=== PATIENT | female | born 1955 | race Caucasian/White ===

== ENCOUNTER 2016-09-24 03:50 | Emergency (ER) | payer OTHER ==
[~2016-09-24 03:50] MED LIST: ASPIR 8181 MG PO; BENADRYL 25MG C25 MG PO; GLUCOPHAGE1000 MG PO; IMDUR ER TAB 3030 MG PO; K-DUR TAB 10 M10 MEQ PO; LIPITOR TAB 2020 MG PO; LOPRESSOR 25 MG25 MG PO; PLAVIX 75 MG TA75 MG PO; PROTONIX40 MG PO; SYNTHROID88 MCG PO; VALIUM 5 MG TAB5 MG PO
== END 2016-09-24 05:50 | disposition home or self-care (01) ==
LOC: ER1 03:50
DX: Z53.21 Procedure and treatment not carried out due to patient leaving prior to being seen by health care provider (principal)

== ENCOUNTER 2020-09-01 15:24 | Emergency (ER) | payer OTHER ==
[~2020-09-01 15:24] MED LIST changes: +ARNUITY ELLIPT50 MCG INH; +BENADRYL 50MG C50 MG PO; +CERTAVITE SR-A1 EACH PO; +FLAGYL500 MG PO; +IMODIUM CAP 2 MG2 MG PO; +JANUMET 50-1,01 EACH PO; +JARDIANCE10 MG PO; +K-DUR TAB 20 M20 MEQ PO; +LASIX20 MG PO; +MACROBID 100 M100 MG PO; +MELOXICAM15 MG PO; +NAPROXEN500 MG PO; +NORFLEX 100 MG100 MG PO; +OMNICEF 300 MG300 MG PO; +PEPCID20 MG PO; +REQUIP0.25 MG PO; +SYNTHROID100 MCG PO; -SYNTHROID88 MCG PO; +TESSALON PERLE100 MG PO; +VALIUM5 MG PO; +VOLTAREN EC 7575 MG PO; +Voltaren Gel 1 % TOP; +ZITHROMAX250 MG PO; +ZOFRAN 4 MG TAB4 MG PO; +ZOFRAN ODT 4 MG4 MG PO; +ZOFRAN4 MG PO; +ZOFRAN8 MG PO
[2020-09-01 19:08] LABS: HEMOGLOBIN 14.3 gm/dl (12.3-15.3); RED BLOOD COUNT 4.91 M/UL (4.00-5.10); WHITE BLOOD COUNT 17.9 K/UL (4.5-11.0)
[2020-09-01 19:27] LABS: BUN/CREATININE RATIO 14 (0-10)
[2020-09-01] MEDS ORDERED: OMNICEF 300 MG300 MG PO (20:35)
[2020-09-01] MEDS ORDERED: HYDROCODON-ACE1 EAC4 PO (20:35)
== END 2020-09-01 21:07 | disposition home or self-care (01) ==
LOC: ER1 15:24
PROVIDERS: Emergency Medicine
DX: N12 Tubulo-interstitial nephritis, not specified as acute or chronic (principal); N20.0 Calculus of kidney; J44.9 Chronic obstructive pulmonary disease, unspecified; E11.40 Type 2 diabetes mellitus with diabetic neuropathy, unspecified; I11.9 Hypertensive heart disease without heart failure; Z90.49 Acquired absence of other specified parts of digestive tract
CPT/HCPCS: 80053; 81001; 82550; 82553; 83874; 84484; 85025; 96365; 96375; 99284; J0696; J2270; J2405

== ENCOUNTER 2020-12-18 08:21 | Emergency (ER) | payer OTHER ==
[~2020-12-18 08:21] MED LIST changes: +HYDROCODON-ACE1 EAC4 PO
[2020-12-18] MEDS ORDERED: MOBIC15 MG PO (12:04)
== END 2020-12-18 12:36 | disposition home or self-care (01) ==
LOC: ER1 08:21
DX: S93.401A Sprain of unspecified ligament of right ankle, initial encounter (principal); S80.01XA Contusion of right knee, initial encounter; J44.9 Chronic obstructive pulmonary disease, unspecified; E78.5 Hyperlipidemia, unspecified; I50.9 Heart failure, unspecified; E11.9 Type 2 diabetes mellitus without complications; Z88.1 Allergy status to other antibiotic agents; Z88.8 Allergy status to other drugs, medicaments and biological substances; W22.8XXA Striking against or struck by other objects, initial encounter; Y92.89 Other specified places as the place of occurrence of the external cause; Y99.0 Civilian activity done for income or pay
CPT/HCPCS: 71045; 73562; 73590; 73610; 99283

== ENCOUNTER 2021-01-14 10:42 | Emergency (ER) | payer OTHER ==
[~2021-01-14 10:42] MED LIST changes: +MOBIC15 MG PO
[2021-01-14 11:47] LABS: HEMOGLOBIN 14.3 gm/dl (12.3-15.3); RED BLOOD COUNT 4.98 M/UL (4.00-5.10); WHITE BLOOD COUNT 5.6 K/UL (4.5-11.0)
[2021-01-14 12:00] LABS: BUN/CREATININE RATIO 11 (0-10)
== END 2021-01-14 18:19 | disposition home or self-care (01) ==
LOC: ER1 10:42
PROVIDERS: Emergency Medicine
DX: R07.81 Pleurodynia (principal); R07.89 Other chest pain; E78.5 Hyperlipidemia, unspecified; E11.9 Type 2 diabetes mellitus without complications; J44.9 Chronic obstructive pulmonary disease, unspecified; Z90.49 Acquired absence of other specified parts of digestive tract; Z95.5 Presence of coronary angioplasty implant and graft; Z88.1 Allergy status to other antibiotic agents; Z79.82 Long term (current) use of aspirin; Z88.8 Allergy status to other drugs, medicaments and biological substances
CPT/HCPCS: 71045; 80053; 82550; 82553; 83874; 84484; 85025; 85379; 93005; 99284; Q9967

== ENCOUNTER 2021-04-06 16:01 | Emergency (ER) | payer OTHER ==
[2021-04-06] MEDS ORDERED: NAPROXEN500 MG PO (20:15)
== END 2021-04-06 20:27 | disposition home or self-care (01) ==
LOC: ER1 16:01
DX: S82.831A Other fracture of upper and lower end of right fibula, initial encounter for closed fracture (principal); E11.9 Type 2 diabetes mellitus without complications; I10 Essential (primary) hypertension; J44.9 Chronic obstructive pulmonary disease, unspecified; X58.XXXA Exposure to other specified factors, initial encounter; Y92.009 Unspecified place in unspecified non-institutional (private) residence as the place of occurrence of the external cause
CPT/HCPCS: 73590; 93971; 99284

== ENCOUNTER 2021-06-04 09:50 | Emergency (ER) | payer OTHER ==
[2021-06-04 10:52] LABS: HEMOGLOBIN 14.5 gm/dl (12.3-15.3); RED BLOOD COUNT 4.95 M/UL (4.00-5.10); WHITE BLOOD COUNT 8.9 K/UL (4.5-11.0)
[2021-06-04 11:17] LABS: BUN/CREATININE RATIO 17 (0-10)
== END 2021-06-04 14:15 | disposition home or self-care (01) ==
LOC: ER1 09:50
PROVIDERS: Physician Assistant
DX: I11.0 Hypertensive heart disease with heart failure (principal); I50.9 Heart failure, unspecified; I25.2 Old myocardial infarction; Z20.822 Contact with and (suspected) exposure to COVID-19; J44.9 Chronic obstructive pulmonary disease, unspecified; I25.10 Atherosclerotic heart disease of native coronary artery without angina pectoris; Z88.1 Allergy status to other antibiotic agents
CPT/HCPCS: 71045; 80053; 82550; 82553; 83874; 83880; 84484; 85025; 93005; 99285; U0002

== ENCOUNTER 2021-08-03 17:59 | Emergency (ER) | payer OTHER ==
[2021-08-03 19:26] LABS: HEMOGLOBIN 13.6 gm/dl (12.3-15.3); RED BLOOD COUNT 4.91 M/UL (4.00-5.10); WHITE BLOOD COUNT 8.6 K/UL (4.5-11.0)
[2021-08-03 19:57] LABS: BUN/CREATININE RATIO 11 (0-10)
== END 2021-08-03 21:31 | disposition home or self-care (01) ==
LOC: ER1 17:59
PROVIDERS: Family Medicine
DX: U07.1 COVID-19 (principal); E11.9 Type 2 diabetes mellitus without complications; Z79.84 Long term (current) use of oral hypoglycemic drugs; Z88.1 Allergy status to other antibiotic agents; Z90.710 Acquired absence of both cervix and uterus
CPT/HCPCS: 0240U; 71045; 80053; 82009; 83605; 85025; 86140; 96374; 99283; J2405

== ENCOUNTER → 2021-08-06 | Outpatient (CLI) | payer OTHER ==
[~2021-08-06] VITALS: Ht 154.9 cm; Wt 103.9 kg
== END ==
LOC: EROP 13:51
DX: U07.1 COVID-19 (principal); Z23 Encounter for immunization; I10 Essential (primary) hypertension; J98.9 Respiratory disorder, unspecified; I99.9 Unspecified disorder of circulatory system
CPT/HCPCS: M0247; Q0247

== ENCOUNTER 2021-09-24 10:33 | Emergency (ER) | payer OTHER ==
[2021-09-24 11:14] LABS: HEMOGLOBIN 13.8 gm/dl (12.3-15.3); RED BLOOD COUNT 4.85 M/UL (4.00-5.10); WHITE BLOOD COUNT 11.9 K/UL (4.5-11.0)
[2021-09-24 11:49] LABS: BUN/CREATININE RATIO 13 (0-10)
[2021-09-24] MEDS ORDERED: OMNICEF 300 MG300 MG PO (14:03)
[2021-09-24] MEDS ORDERED: ZOFRAN 4 MG TAB4 MG PO (14:03)
== END 2021-09-24 14:18 | disposition home or self-care (01) ==
LOC: ER1 10:33
PROVIDERS: Emergency Medicine
DX: N39.0 Urinary tract infection, site not specified (principal); R11.10 Vomiting, unspecified; R19.7 Diarrhea, unspecified; J44.9 Chronic obstructive pulmonary disease, unspecified; Z88.1 Allergy status to other antibiotic agents; Z88.8 Allergy status to other drugs, medicaments and biological substances; Z95.5 Presence of coronary angioplasty implant and graft
CPT/HCPCS: 80053; 81001; 82550; 82553; 83605; 83690; 84484; 85025; 87086; 96374; 96375; 99284; J2270; J2405; Q9967

== ENCOUNTER 2021-11-15 14:47 | Observation (INO) | payer OTHER ==
[~2021-11-15] VITALS: Ht 162.6 cm; Wt 113.4 kg
[~2021-11-15 14:47] MED LIST changes: +DICLOFENAC POTA50 MG PO; -JANUMET 50-1,01 EACH PO; +JANUMET XR 50-1 EACH PO; -K-DUR TAB 10 M10 MEQ PO; -LASIX20 MG PO; +LASIX40 MG PO; -LIPITOR TAB 2020 MG PO; +LIPITOR80 MG PO; +POTASSIUM CHLO10 ME1 PO; -VOLTAREN EC 7575 MG PO
[2021-11-15 15:31] LABS: HEMOGLOBIN 14.3 gm/dl (12.3-15.3); RED BLOOD COUNT 5.02 M/UL (4.00-5.10); WHITE BLOOD COUNT 9.6 K/UL (4.5-11.0)
[2021-11-15 16:03] LABS: BUN/CREATININE RATIO 16 (0-10)
[2021-11-16 03:25] LABS: HEMOGLOBIN 12.5 gm/dl (12.3-15.3)
[2021-11-16 03:26] LABS: RED BLOOD COUNT 4.4 M/UL (4.00-5.10)
[2021-11-16 03:46] LABS: BUN/CREATININE RATIO 17 (0-10)
[2021-11-16] MEDS ORDERED: PROAIR HFA8.5 GM INH (10:45)
[2021-11-16] MEDS ORDERED: LORATADINE10 MG PO (10:46)
[2021-11-16] MEDS ORDERED: LOSARTAN POTASS25 MG PO (10:47)
[2021-11-16] MEDS ORDERED: ROPINIROLE HC0.25 MG PO (11:19)
--- NOTE | 2021-11-16 17:47 | NUR ---
PT NOTED TO BE GOING OFF THE FLOOR AND LEAVING WITH TWO GUYS DESPITE TEACHING ABOUT NEED TO REST AND TAKE IT EASY. SHE RETURNED TO FLOOR WITH AN ARMFUL OF SNACKS, POP, CANDY, AND CHIPS. NOTIFIED
[2021-11-17] MEDS ORDERED: RANEXA500 MG PO (14:04)
== END 2021-11-17 16:16 | disposition home or self-care (01) ==
LOC: ER1 14:47 → CDU 19:37 → PROG CARE 11-16 12:28
PROVIDERS: Student in an Organized Health Care Education/Training Program; ADMIT Internal Medicine
PROC: B2111ZZ Fluoroscopy of Multiple Coronary Arteries using Low Osmolar Contrast (ICD-10-PCS; principal; 2021-11-17)
DX: R07.89 Other chest pain (principal); I25.10 Atherosclerotic heart disease of native coronary artery without angina pectoris; I10 Essential (primary) hypertension; I25.2 Old myocardial infarction; R11.10 Vomiting, unspecified; E78.00 Pure hypercholesterolemia, unspecified; E78.5 Hyperlipidemia, unspecified; E11.9 Type 2 diabetes mellitus without complications; E03.9 Hypothyroidism, unspecified; R74.01 Elevation of levels of liver transaminase levels; F41.1 Generalized anxiety disorder; E66.9 Obesity, unspecified; Z68.41 Body mass index [BMI] 40.0-44.9, adult; Z79.1 Long term (current) use of non-steroidal anti-inflammatories (NSAID); Z79.84 Long term (current) use of oral hypoglycemic drugs; Z79.82 Long term (current) use of aspirin; Z79.890 Hormone replacement therapy; Z79.899 Other long term (current) drug therapy; Z95.5 Presence of coronary angioplasty implant and graft; Z88.1 Allergy status to other antibiotic agents; Z88.8 Allergy status to other drugs, medicaments and biological substances; Z87.01 Personal history of pneumonia (recurrent); Z90.710 Acquired absence of both cervix and uterus; Z90.49 Acquired absence of other specified parts of digestive tract; Z86.79 Personal history of other diseases of the circulatory system; Z87.442 Personal history of urinary calculi; Z87.19 Personal history of other diseases of the digestive system
CPT/HCPCS: ECHO; 71045; 78452; 80048; 80053; 82550; 82553; 82962; 83036; 83690; 83735; 84439; 84443; 84484; 85025; 93005; 93017; 93306; 96372; 96374; 96375; 99152; 99153; 99285; A9502; C1769; C1887; C1894; G0378; J0583; J1644; J1650; J2250; J2270; J2370; J2405; J2550; J2785; J3010; J7040; Q9967

== ENCOUNTER 2021-12-16 17:44 | Emergency (ER) | payer OTHER ==
[~2021-12-16 17:44] MED LIST changes: +LORATADINE10 MG PO; +LOSARTAN POTASS25 MG PO; +PROAIR HFA8.5 GM INH; +RANEXA500 MG PO; +ROPINIROLE HC0.25 MG PO
[2021-12-16 19:40] LABS: HEMOGLOBIN 13.4 gm/dl (12.3-15.3); RED BLOOD COUNT 4.68 M/UL (4.00-5.10); WHITE BLOOD COUNT 9.2 K/UL (4.5-11.0)
[2021-12-16 20:02] LABS: BUN/CREATININE RATIO 13 (0-10)
[2021-12-16] MEDS ORDERED: OMNICEF 300 MG300 MG PO (21:07)
== END 2021-12-16 21:17 | disposition home or self-care (01) ==
LOC: ER1 17:44
PROVIDERS: Student in an Organized Health Care Education/Training Program
DX: N39.0 Urinary tract infection, site not specified (principal); R31.9 Hematuria, unspecified; I11.9 Hypertensive heart disease without heart failure; E11.9 Type 2 diabetes mellitus without complications; J44.9 Chronic obstructive pulmonary disease, unspecified; Z95.5 Presence of coronary angioplasty implant and graft
CPT/HCPCS: 80053; 81001; 83690; 85025; 99284

== ENCOUNTER 2022-01-19 12:36 | Emergency (ER) | payer OTHER ==
[2022-01-19 13:50] LABS: HEMOGLOBIN 14.4 gm/dl (12.3-15.3); RED BLOOD COUNT 5.07 M/UL (4.00-5.10); WHITE BLOOD COUNT 9.7 K/UL (4.5-11.0)
[2022-01-19] MEDS ORDERED: ZOFRAN ODT 4 MG4 MG SL (16:00)
[2022-01-19] MEDS ORDERED: MACROBID 100 M100 M1 PO (16:00)
== END 2022-01-19 16:23 | disposition home or self-care (01) ==
LOC: ER1 12:36
PROVIDERS: Emergency Medicine
DX: A08.4 Viral intestinal infection, unspecified (principal); I10 Essential (primary) hypertension; Z90.49 Acquired absence of other specified parts of digestive tract; Z95.5 Presence of coronary angioplasty implant and graft; Z90.710 Acquired absence of both cervix and uterus; Z88.1 Allergy status to other antibiotic agents; Z88.8 Allergy status to other drugs, medicaments and biological substances; Z20.822 Contact with and (suspected) exposure to COVID-19
CPT/HCPCS: 0240U; 80053; 81001; 83690; 85025; 96374; 96375; 99284; J1885; J2405